=== PATIENT | male | born 2000 | race Caucasian/White ===

== ENCOUNTER 2021-01-17 15:26 | Emergency (ER) | payer OTHER ==
[2021-01-17 15:34] VITALS: BP 125/61; PULSE 91; RESP 18; TEMP 97.5
[2021-01-17] MEDS ORDERED: IBUPROFEN 600 MG TAB PO STA (16:12)
--- NOTE | 2021-01-17 16:32 | XR ---
EXAMINATION TYPE: XR knee complete RT DATE OF EXAM: 01/17/2021 CLINICAL HISTORY: Pain. TECHNIQUE: Three views of the right knee are obtained. COMPARISON: None. FINDINGS: There is no acute fracture/dislocation evident in right knee. The tri-compartment joint s paces appear within normal limits. Tibial tuberosity has well-defined surrounding margins consistent with incomplete ossific fusion. Possible old injury. The overlying soft tissue appears unremarkable. IMPRESSION: There is no acute fracture or dislocation in the right knee.
--- NOTE | 2021-01-17 17:11 | ED ---
General Adult HPI - General Chief complaint: Extremity Injury, Lower Stated complaint: Knee injury, [facility] Time Seen by Provider: 01/17/21 16:00 Source: patient Mode of arrival: ambulatory Limitations: no limitations - History of Present Illness Initial comments: 20-year-old male presents for right knee pain. Patient states that he was jumping over something at work and felt his kneecap dislocate. Patient states he has dislocated his kneecap before and this felt exactly the same. Patient states it relocated. Patient states this happened yesterday. He states it is a little stiff but he can bend it all the way. Patient has not taken anything for pain. He does have a brace on that he wore last time.Patient has no other complaints at this time including shortness of breath, chest pain, abdominal pain, nausea or vomiting, headache, or visual changes. - Related Data Allergies Allergy/AdvReac Type Severity Reaction Status Date / Time azithromycin [From Zithromax] Allergy Unknown Verified 01/17/21 15:34 Review of Systems ROS Statement: Those systems with pertinent positive or pertinent negative responses have been documented in the HPI. ROS Other: All systems not noted in ROS Statement are negative. Past Medical History Past Medical History: No Reported History History of Any Multi-Drug Resistant Organisms: None Reported Past Surgical History: No Surgical Hx Reported Past Psychological History: Anxiety Smoking Status: Never smoker Past Alcohol Use History: None Reported Past Drug Use History: None Reported General Exam Limitations: no limitations General appearance: alert, in no apparent distress Head exam: Present: atraumatic, normocephalic, normal inspection Eye exam: Present: normal appearance, PERRL, EOMI. Absent: scleral icterus, conjunctival injection, periorbital swelling ENT exam: Present: normal exam, mucous membranes moist Neck exam: Present: normal inspection. Absent: tenderness, meningismus, lymphadenopathy Respiratory exam: Present: normal lung sounds bilaterally. Absent: respiratory distress, wheezes, rales, rhonchi, stridor Cardiovascular Exam: Present: regular rate, normal rhythm, normal heart sounds. Absent: systolic murmur, diastolic murmur, rubs, gallop, clicks GI/Abdominal exam: Present: soft, normal bowel sounds. Absent: distended, tenderness, guarding, rebound, rigid Extremities exam: Present: normal capillary refill (Capillary refill less than 2 seconds, radial pulse 2+ in the right lower extremity.), joint swelling (Minimal edema of the anterior knee), other (Sensation intact right lower extremity.). Absent: full ROM (Patient has about 90 flexion of the right knee, full extension.), tenderness (No significant tenderness noted of the knee), pedal edema, calf tenderness Course Vital Signs 01/17/21 15:29 Temperature 97.5 F L Pulse Rate 91 Respiratory 18 Rate Blood Pressure 125/61 O2 Sat by Pulse 98 Oximetry Medical Decision Making - Medical Decision Making Vitals are stable. HPI and physical exam as documented. Patient has a 2+ pulses noted in the right leg. Neurovascular status intact. He is able to flex the knee to 90. [place] DELIA 1.02 which is normal. At this time patient can be discharged home to follow up outpatient with orthopedics. He will return here for any worsening symptoms. Disposition Clinical Impression: Knee pain, right Disposition: HOME SELF-CARE Condition: Good Instructions (If sedation given, give patient instructions): Knee Pain (ED) Additional Instructions: Please take Motrin and Tylenol for pain. Please follow-up with orthopedics. If you've any worsening symptoms return to the emergency room. Is patient prescribed a controlled substance at d/c from ED?: No Referrals: Daina Carl DO [Doctor of Osteopathic Medicine] - 1-2 days Time of Disposition: 17:08
== END 2021-01-17 17:20 | disposition home or self-care (01) ==
LOC: EC 15:26
DX: M25.561 Pain in right knee (principal); R60.0 Localized edema; F41.9 Anxiety disorder, unspecified
CPT/HCPCS: 99283